=== PATIENT | female | born 1960 | race Caucasian/White ===

== ENCOUNTER 2016-05-09 10:43 | Observation (INO) | payer OTHER ==
[~2016-05-09] VITALS: Ht 157.5 cm; Wt 64.6 kg
[~2016-05-09 10:43] MED LIST: NOHOMEMEDS
[2016-05-09 11:19] LABS: HEMATOCRIT 38.6 % (36.0-46.0); MCH 31.3 PG (29.0-34.0); MCHC 35.2 G/DL (30.0-36.0); MCV 88.9 FL (83-99); MEAN PLAT.VOLUME 10.6 uM^3 (9.5-12.4); PLATELET COUNT 318 K/uL (156-360); RBC DIS.WIDTH-CV 12.7 % (11.8-14.6); RBC DIS.WIDTH-SD 40.5 % (39-53); RED BLOOD COUNT 4.34 M/uL (3.80-5.20); WHITE BLOOD COUNT 6.4 K/uL (4.1-10.2)
[2016-05-09 11:45] LABS: TROP-I INTERPRETATION NEGATIVE; TROPONIN-I < 0.01 ng/mL (0.0-0.30)
[2016-05-09 11:53] LABS: CHLORIDE 108 mEq/L (99-109); POTASSIUM 3.7 mEq/L (3.7-5.4); SODIUM 142 mEq/L (136-147)
[2016-05-09 11:55] LABS: GLUCOSE 116 mg/dL (70-99)
[2016-05-09 11:56] LABS: ANION GAP 11 MEQ/L (2-14)
[2016-05-09 11:59] LABS: GFR ESTIMATE (CALCULATED) > 59 mL/min/
[2016-05-09 12:00] LABS: UREA NITROGEN (BUN) 14 mg/dL (9-23)
[2016-05-09] MEDS ORDERED: ATENOLOL25 MG PO (13:22)
[2016-05-09 14:52] LABS: TROP-I INTERPRETATION NEGATIVE; TROPONIN-I < 0.01 ng/mL (0.0-0.30)
[2016-05-09] MEDS ORDERED: PRILOSEC OTC20 MG PO (15:12)
[2016-05-09] MEDS ORDERED: VALACYCLOVIR1000 MG PO (15:12)
[2016-05-09] MEDS ORDERED: EXCEDRIN EXTRA1 EACH PO (15:12)
[2016-05-09 17:42] VITALS: BP 144/67
[2016-05-09 20:32] LABS: TROP-I INTERPRETATION NEGATIVE; TROPONIN-I < 0.01 ng/mL (0.0-0.30)
[2016-05-09 22:00] VITALS: BP 110/59
[2016-05-10 01:05] VITALS: BP 122/64
[2016-05-10 02:47] LABS: TROP-I INTERPRETATION NEGATIVE; TROPONIN-I < 0.01 ng/mL (0.0-0.30)
[2016-05-10 04:37] VITALS: BP 109/54
[2016-05-10 07:20] LABS: HEMATOCRIT 37.7 % (36.0-46.0); MCH 31.5 PG (29.0-34.0); MCHC 34.5 G/DL (30.0-36.0); MCV 91.3 FL (83-99); MEAN PLAT.VOLUME 11.2 uM^3 (9.5-12.4); PLATELET COUNT 277 K/uL (156-360); RBC DIS.WIDTH-CV 12.9 % (11.8-14.6); RBC DIS.WIDTH-SD 42.7 % (39-53); RED BLOOD COUNT 4.13 M/uL (3.80-5.20); WHITE BLOOD COUNT 4.1 K/uL (4.1-10.2)
[2016-05-10 07:32] LABS: ANION GAP 8 MEQ/L (2-14); CHLORIDE 108 MEQ/L (99-109); GFR ESTIMATE (CALCULATED) > 59 mL/min/; POTASSIUM 4.2 MEQ/L (3.7-5.4); SAMPLE HEMOLYSIS CHECK 0; SAMPLE ICTERIC CHECK 0; SAMPLE LIPEMIA CHECK 0; SODIUM 142 MEQ/L (136-147); UREA NITROGEN (BUN) 15 mg/dL (9-23)
[2016-05-10 07:34] LABS: GLUCOSE 86 mg/dL (70-99)
[2016-05-10] MEDS ORDERED: LO-DOSE ASPIRIN81 M2 PO (08:50)
[2016-05-10 10:25] VITALS: BP 109/55
== END 2016-05-10 11:08 | disposition home or self-care (01) ==
LOC: EME 10:43 → EDOF 15:35 → 5WEST 17:15
PROVIDERS: Nurse Practitioner Adult Health; Physician Assistant
DX: R07.89 Other chest pain (principal); E78.5 Hyperlipidemia, unspecified; I35.0 Nonrheumatic aortic (valve) stenosis; R00.2 Palpitations; Z87.891 Personal history of nicotine dependence; Z88.0 Allergy status to penicillin; Z88.8 Allergy status to other drugs, medicaments and biological substances
CPT/HCPCS: 71010; 71020; 80048; 84484; 85027; 93005; 99281; 99285; G0378

== ENCOUNTER 2017-03-12 06:11 | Emergency (ER) | payer OTHER ==
[~2017-03-12] VITALS: Ht 157.5 cm; Wt 66.6 kg
[~2017-03-12 06:11] MED LIST changes: +ATENOLOL25 MG PO; +EXCEDRIN EXTRA1 EACH PO; +LO-DOSE ASPIRIN81 M2 PO; +PRILOSEC OTC20 MG PO; +VALACYCLOVIR1000 MG PO
[2017-03-12] MEDS ORDERED: METRONIDAZOLE500 MG PO (06:30)
[2017-03-12] MEDS ORDERED: LEVOFLOXACIN500 MG PO (06:30)
[2017-03-12 07:01] LABS: EOSINOPHIL (%) 1.8 % (0-5); EOSINOPHIL COUNT 0.1 K/uL (0-0.3); HEMATOCRIT 37.6 % (36.0-46.0); INSTRUMENT ABS NEUTROPHIL CT 2.7 K/uL; LYMPHOCYTE COUNT 1.3 K/uL (1.0-2.8); MCH 31.3 PG (29.0-34.0); MCHC 34.6 G/DL (30.0-36.0); MCV 90.6 FL (83-99); MEAN PLAT.VOLUME 10.6 uM^3 (9.5-12.4); MONOCYTE (%) 7.8 % (3-12); MONOCYTE COUNT 0.4 K/uL (0-0.8); NEUTROPHIL (%) 60.1 % (45-76); NEUTROPHIL COUNT 2.7 K/uL (1.8-6.4); PLATELET COUNT 246 K/uL (156-360); RBC DIS.WIDTH-SD 40.1 % (39-53); RED BLOOD COUNT 4.15 M/uL (3.80-5.20); WHITE BLOOD COUNT 4.5 K/uL (4.1-10.2)
[2017-03-12 07:15] LABS: ADD MIUA? YES; BILIRUBIN NEGATIVE; BLOOD SMALL; COLOR STRAW ((YELLOW)); GLUCOSE (STRIP) NEGATIVE; KETONES NEGATIVE; LEUKOCYTES TRACE; NITRITE NEGATIVE; PROTEIN (STRIP) NEGATIVE; UROBILINOGEN 0.2 MG/DL (0.2-1.0)
[2017-03-12 07:20] LABS: BACTERIA NONE SEEN /HPF; EPITHELIAL CELLS RARE /HPF; MUCUS TRACE /LPF; RED BLOOD CELLS 0-5 /HPF (0-5); WHITE BLOOD CELLS 0-5 /HPF (0-5)
[2017-03-12 07:44] LABS: ANION GAP 8 MEQ/L (2-14); CHLORIDE 106 MEQ/L (99-109); GFR ESTIMATE (CALCULATED) > 59 mL/min/; GLUCOSE 96 mg/dL (70-99); POTASSIUM 4.1 MEQ/L (3.7-5.4); SAMPLE HEMOLYSIS CHECK 0; SAMPLE ICTERIC CHECK 0; SAMPLE LIPEMIA CHECK 0; SODIUM 140 MEQ/L (136-147); UREA NITROGEN (BUN) 19 mg/dL (9-23)
[2017-03-12] MEDS ORDERED: PERCOCET 5/31 TABLET PO (09:50)
[2017-03-12 10:07] VITALS: BP 123/60
== END 2017-03-12 10:15 | disposition home or self-care (01) ==
LOC: EME 06:11
PROVIDERS: Emergency Medicine
DX: N20.0 Calculus of kidney (principal); Z87.442 Personal history of urinary calculi; K21.9 Gastro-esophageal reflux disease without esophagitis; I34.1 Nonrheumatic mitral (valve) prolapse; Z88.0 Allergy status to penicillin; Z87.891 Personal history of nicotine dependence
CPT/HCPCS: 74176; 80048; 81003; 85025; 99281; 99284

== ENCOUNTER 2017-07-11 17:49 | Emergency (ER) | payer OTHER ==
[~2017-07-11] VITALS: Ht 160 cm; Wt 65.1 kg
[~2017-07-11 17:49] MED LIST changes: +LEVOFLOXACIN500 MG PO; +METRONIDAZOLE500 MG PO; +PERCOCET 5/31 TABLET PO
[2017-07-11 19:08] LABS: APPEARANCE CLEAR ((CLEAR)); BILIRUBIN NEGATIVE; BLOOD NEGATIVE; COLOR YELLOW ((YELLOW)); GLUCOSE (STRIP) NEGATIVE; KETONES NEGATIVE; LEUKOCYTES TRACE; NITRITE NEGATIVE; PROTEIN (STRIP) NEGATIVE; SPECIFIC GRAVITY 1.019 (1.000-1.030); UROBILINOGEN 0.2 MG/DL (0.2-1.0)
[2017-07-11 19:23] LABS: BACTERIA NONE SEEN /HPF; EPITHELIAL CELLS RARE /HPF; MUCUS TRACE /LPF; RED BLOOD CELLS 0-5 /HPF (0-5); UCUL ADDED? NO; WHITE BLOOD CELLS 0-5 /HPF (0-5)
[2017-07-11] MEDS ORDERED: FLEXERIL10 MG PO (19:54)
[2017-07-11] MEDS ORDERED: NAPROXEN500 MG PO (19:54)
[2017-07-11 20:14] VITALS: BP 121/73
== END 2017-07-11 20:16 | disposition home or self-care (01) ==
LOC: EME 17:49
PROVIDERS: Physician Assistant Medical
DX: S39.012A Strain of muscle, fascia and tendon of lower back, initial encounter (principal); I48.91 Unspecified atrial fibrillation; N20.0 Calculus of kidney; Z88.0 Allergy status to penicillin
CPT/HCPCS: 81003; 99281; 99284